=== PATIENT | male | born 1960 | race Hispanic/Latino ===

== ENCOUNTER → 2025-01-16 | Outpatient (CLI) | payer BC ==
[~2025-01-16] VITALS: Ht 167.6 cm; Wt 91.4 kg
[2025-01-16 10:05] VITALS: BP 155/82; PULSE 61; RESP 18; TEMP 98.6
--- NOTE | 2025-01-16 11:10 | NUR ---
notified called dr valencia and informed pt took clopidogrel this morning. procedure for monday cancelled as per md and they will call and reschedule
== END | disposition home or self-care (01) ==
LOC: DAH 08:43 → EDSTATUS 10:00
PROVIDERS: ATTEND Student in an Organized Health Care Education/Training Program
DX: Z01.818 Encounter for other preprocedural examination (principal); M87.051 Idiopathic aseptic necrosis of right femur; M25.551 Pain in right hip; M21.70 Unequal limb length (acquired), unspecified site; R26.89 Other abnormalities of gait and mobility; I11.9 Hypertensive heart disease without heart failure; E78.5 Hyperlipidemia, unspecified; Z79.82 Long term (current) use of aspirin; Z95.5 Presence of coronary angioplasty implant and graft; Z79.899 Other long term (current) drug therapy
CPT/HCPCS: 36415; 84134; 86140; 87641

== ENCOUNTER 2025-02-05 05:55 | Observation (INO) | payer BC ==
[2025-02-03 09:50] LABS: IMMATURE GRANULOCYTE ABSOLUTE 0.02 K/uL (0-1); NUCLEATED RED BLOOD CELLS 0.0 % (0.0-0.19); PLATELET COUNT (AUTO) 196 K/uL (130-400); RED BLOOD CELL COUNT(AUTO) 4.29 MIL/uL (4.50-6.20); RED CELL DISTRIBUTION WIDTH 11.9 % (11.0-15.5); WHITE BLOOD COUNT (AUTO) 6.2 K/uL (4.8-10.8)
[2025-02-03 10:04] LABS: INR 0.97 (0.85-1.15)
[2025-02-03 10:07] LABS: CREATININE 0.8 mg/dL (0.5-1.3); GLOMERULAR FILTR. RATE CALC 99.0 mL/min (>90); GLUCOSE,RANDOM 109.0 mg/dL (70-105); SODIUM SERUM 145.0 mmol/L (136-145); UREA NITROGEN, BLOOD 14.0 mg/dL (7-18)
[2025-02-03 10:29] VITALS: BP 174/81; PULSE 68; RESP 18; TEMP 98.2
[2025-02-03 10:33] VITALS: BP 150/89
[2025-02-05] VITALS (22 sets, daily range): BP systolic 123–147; BP diastolic 64–80; PULSE 66–97; RESP 16–20; TEMP 96.2–98.1; O2SAT 97
[~2025-02-05] VITALS: Ht 170.2 cm; Wt 92.1 kg
[~2025-02-05 05:55] MED LIST: ASPI-1197 PO; ATOR40TA71 PO; CARV3.12 PO; CHOL100046 PO; CLOP75TA32 PO; CYAN500T9 PO; NITR0.4T50 SL
[2025-02-05] MEDS ORDERED: CALCIUM CARB 500MG PO PRN (08:00)
[2025-02-05] MEDS ORDERED: FERROUS FUMARATE 324 MG TABLET PO PRN (08:00)
[2025-02-05] MEDS ORDERED: HYDROcodone/APAP 5/325 1 TAB TABLET PO PRN (08:00)
[2025-02-05] MEDS ORDERED: PoTASSium chloRIDE 20MEQ ER 20 MEQ ERTAB PO PRN (08:00)
[2025-02-05] MEDS ORDERED: PoTASSium chl 10% ELIXIR 20MEQ 20 MEQ/15 ML UDCUP PO PRN (08:00)
[2025-02-05] MEDS ORDERED: CYCLOBENZAPRINE HCL 10 MG TABLET PO PRN (08:00)
[2025-02-05] MEDS ORDERED: NITROGLYCERIN 0.4 MG SL TAB SL PRN (08:00)
[2025-02-05] MEDS ORDERED: LIDOCAINE PF 100MG/5ML (2%) SYRINGE 5ML ONE (08:18)
[2025-02-05] MEDS ORDERED: SUCCINYLCHOLINE CHLORIDE 20 MG/ML 10 ML VIAL ONE (08:18)
[2025-02-05] MEDS ORDERED: GLYCOPYRROLATE 0.2 MG/ML 5 ML VIAL ONE (08:18)
[2025-02-05] MEDS ORDERED: NEOSTIGMINE METHYLSULFATE 1MG/ML IV ONE (08:18)
[2025-02-05] MEDS ORDERED: MIDAZOLAM HCL 1 MG/ML 2ML VIAL ONE (08:19)
[2025-02-05] MEDS ORDERED: TRANEXAMIC ACID 1000MG/10ML ONE (08:20)
[2025-02-05] MEDS ORDERED: ALBUMIN (HUMAN) 5% 500 ML IV ONE (08:26)
[2025-02-05] MEDS: LACTATED RINGERS 1000ML 1,000 ML IV ONE (09:25)
[2025-02-05] MEDS: TRANEXAMIC ACID 1000MG/10ML IV ONE (09:35)
--- NOTE | 2025-02-05 13:00 | NUR ---
PT ARRIVED TO UNIT. VS: 147/82, SPO2 95% ON RA, AND PULSE 75. PT IS RESTING COMFORTABLY ON THE BED. NO S/S OF DISTRESS NO COMPLAINTS OF PAIN VERBALIZED.
[2025-02-05] MEDS: 0.9%NACL 1000ML 1,000 ML IV SCH (13:56)
--- NOTE | 2025-02-05 14:00 | NUR ---
Ortho Coordinator: Patient working with physical therapy.
[2025-02-05] MEDS: HYDROcodone/APAP 5/325 1 TAB TABLET PO PRN (14:14)
--- NOTE | 2025-02-05 14:44 | DS ---
Discharge Summary Hospital Course Summary: The patient was admitted to the hospital postoperatively on 02/05/2025 after undergoing right total hip arthroplasty. They did well with routine postoperative pain control. They worked well with physical therapy. They developed some acute blood loss anemia but remained asymptomatic. The hospital course was otherwise uncomplicated. They were subsequently able to be discharged on postoperative day 1 once discharge arrangements were made with home health physical therapy with [facility]. Litigation Services Manager(s): None Procedure(s): Right total hip arthroplasty, 02/05/2025 Assessment/Plan: ASSESSMENT: Status post right total hip arthroplasty Acute blood loss anemia PLAN: See discharge instructions Discharge Instructions: Begin working with home health physical therapy. Remembered do not flex the hip more than 90 and do not cross midline at the knees or ankles for the 1st six weeks. If you are side sleeper place a pillow between the knees and ankles to prevent the legs from crossing. Dressing may be removed 02/07/2025 and left open to air. Showers ok allowing s oap and water to run over the wound. Pat dry. Do not submerge wound in tub/pool. Do not apply ointments. Do not apply Betadine. Do not apply peroxide. Ice packs to decrease pain/swelling. Prescriptions have been sent to the pharmacy: *[place] 5/325mg 1-2 tab every 6 hours as needed for severe pain. (please call for refills) Cyclobenzaprine 5mg 1 tab every 8 hours as needed for muscle spasm pain. Gabapentin 100mg 1 tab every 8 hours (may discontinue if drowsy). Colace 100mg 1 tab orally twice a day as needed for constipation. Resume your home plavix and aspirin to prevent blood clots on 02/07/25. Followup visit scheduled for 02/27/2025 at 3pm with [facility]. Home Medications: Active Scripts Hydrocodone/Acetaminophen (Hydrocodon-Acetaminophen 5-325) 5 Mg-325 Mg Tablet, 1-2 TAB PO Q6HPRN PRN for SEVERE PAIN (7-10), #56 TAB 0 Refills Prov:JIM CASTELLANOS MD 02/06/25 Reported Medications Nitroglycerin (Nitroglycerin) 0.4 Mg Tab.subl, 0.4 MG SL AD, TAB.SL 02/03/25 Atorvastatin Calcium (Atorvastatin Calcium) 40 Mg Tablet, 40 MG PO AM, TAB 02/03/25 Aspirin (Aspirin) 81 Mg Tab.chew, 81 MG PO AM, TAB.CHEW 02/03/25 Carvedilol (Carvedilol) 3.125 Mg Tablet, 3.125 MG PO AM, TAB 02/03/25 Clopidogrel Bisulfate (Clopidogrel) 75 Mg Tablet, 75 MG PO AM, TAB 02/03/25 Cholecalciferol (Vitamin D3) (Vitamin D3) 25 Mcg (1000 Unit) Capsule, 25 MCG PO PM, CAP 02/03/25 Cyanocobalamin (Vitamin B-12) 500 Mcg Tab, 500 MCG PO PM, TAB 02/03/25 JIM CASTELLANOS MD Feb 05, 2025 14:44
--- NOTE | 2025-02-05 14:50 | OP ---
Operative Note: DATE OF PROCEDURE: 02/05/25 SURGEON: JIM CASTELLANOS MD CAGE UNLOADER: Xi Subramanian ANESTHESIA: General and fascia iliaca block ANESTHESIOLOGIST/HEAD BONE GRINDER: Landen Whitaker PREOPERATIVE DIAGNOSIS: Right hip avascular necrosis POSTOPERATIVE DIAGNOSIS: Right hip avascular necrosis PROCEDURE: Right total hip arthroplasty ESTIMATED BLOOD LOSS: 200 cc INDICATIONS: 64-year-old male with right hip osteoarthritis, secondary to avascular necrosis, failing conservative management. After discussion of the risks, benefits, and alternatives, the patient voluntarily agreed to undergo the aforementioned procedure. IMPLANTS: Lora [employer] Nephew 56 mm R3 acetabular component with 6.5 mm screws x2, OR3O 44 mm Oxinium dual mobility liner, 28/44 mm dual mobility insert polyethylene, size 6 high offset anthology stem with a 28 mm Oxinium +0 head DESCRIPTION OF PROCEDURE: Patient was properly identified in the preoperative holding area. Surgical site marking was verified and surgery consent reviewed. The patient was then taken to the operating room and placed in supine position on the OR table. After induction of general anesthesia, preoperative antibiotics were given. The patient was then transitioned in the lateral decubitus position with the right side up. All bony prominences were well-padded. Right lower extremity was then prepped and draped in the usual sterile fashion. Surgical time out was done verifying correct surgery, side, site, and location to be performed. We then began the procedure by making approximately 15 cm long incision centered over the greater trochanter. Here we came sharply through skin down to the fascia. Hemostasis was then achieved using Bovie electrocautery. We then incised fascia in line with the skin incision and finger split the tensor muscle proximally. We then placed our Charnley retractor. At this point we identified the vastus ridge and began elevating the full-thickness soft tissue flap off of the vastus ridge, splitting the vastus lateralis and gluteus muscles as necessary. We then proceeded to externally rotate the femur while making this flap. We resected part of the anterior capsule. The femoral head and neck was then delivered into view. We then dislocated the hip and performed a femoral neck osteotomy approximately half fingerbreadth proximal lesser trochanter. We then placed our retractors around the superior and anterior portion of the acetabulum and began to remove the labrum circumferentially. We then began reaming the acetabulum where we reamed up to a size 55 ensuring appropriate anteversion and abduction. We then proceeded to trial with the size 56 acetabular component and this appeared to sit well. We opened our size 56 acetabular component and after irrigating out the wound malleted this into place. It appeared to have good press-fit however we elected to place two of the 6.5 mm screws as well. We drilled and filled the screws in standard fashion in the posterior superior portion of the cup. The wound was thoroughly irrigated out further and we placed the acetabular dual mobility liner and impacted this in place in standard fashion. We then proceeded to reposition our retractors to elevate the proximal femur out of the wound. We then used the box chisel and canal finder to began preparing the femoral side and sequentially broached up to the aforementioned size stem. Once we felt we had good fit, fill, and control of the femur with the stem in place we then used our trial head component and reduce the hip. However we noticed this to be lax on the soft tissue tensioning with slight shortening of the limb and then dislocated the hip and trialed once more with the high offset neck. Upon reduction, we had appropriate soft tissue tensioning, limb length and stable range of motion. We therefore dislocated the hip once more removed our trial components thoroughly irrigated the out the wound and placed our final components in standard fashion. The hip was then reduced with the final components in place. It was found to be stable through range of motion with appropriate soft tissue tensioning and appropriate limb length. At this point we placed a bump under the knee and the foot on the male with a stack of towels to allow for internal rotation. We repaired the abductors back to the greater trochanter using #5 Ethibond. We then repaired the rent in the vastus lateralis and gluteus muscles using #1 Vicryl in a running fashion. We removed our Charnley retractor and began to repair the IT band using #1 Vicryl in interrupted [id number] fashion. At this point we began to close her subcutaneous tissue using 2-0 Vicryl. Running 3-0 Monocryl in subcuticular fashion with Dermabond placed over this for the skin. Island barrier dressing was then applied. Patient was returned to supine position, awakened from anesthesia, and taken to the recovery room in stable condition. JIM CASTELLANOS MD Feb 05, 2025 14:50
--- NOTE | 2025-02-05 17:12 | NUR ---
D/C PLAN CM spoke to patient and spouse regarding d/c planning at bedside. Patient lives with spouse. Spouse to assist at discharge. Reports he is independent with ADLs and denies having any home services. Patient reports he discussed returning home with home health with Dr. Russo. Patient states he has a standard walker without wheels. CM offered in network home health and DME agencies. CM obtained HA[facility]E for any in [facility] health and DME agencies. CM to fax referral to [facility] home health and [facility] for 09/28 [facility]. CM advised patient that their may be potential copay costs for PT visits and DME. Verbalized understanding. No other needs verbalized. CM to f/u with acceptance. Addendum: 02/05/25 at 1718 by JULY LYNCH CM Amended: Links added.
--- NOTE | 2025-02-05 19:41 | HMCIMG ---
EXAM: CR left Hip, 4 View. CLINICAL HISTORY: S/P HIP SURGERY; COMPARING RT vs LT COMPARISON: None provided. FINDINGS: Left total hip arthroplasty is near anatomic alignment with no periprosthetic fracture appreciated. Mild bilateral sacroiliac and left hip joint osteoarthritis. Mild spondylosis of the visualized lower lumbar spine. IMPRESSION: 1. No acute findings. 2. Status post left total hip arthroplasty in near anatomic alignment. /[place]
--- NOTE | 2025-02-05 20:00 | NUR ---
EDUCATION: PT LYING SEMI-BRIONES'S POSITION, AT BEDSIDE. RIGHT HIP ARTHROPLASTY DONE TODAY, DRESSING DRY/INTACT, SENSATION INTACT, STRONG PULSE. VOICES NO PAIN/DISCOMFORTS AT THE TIME. PT DID 2000 RETURN DEMONSTRATION ON IS. PT/ INSTRUCTED ON POST OP CARE, GABAPENTIN, ANCEF USAGE, SIDE EFFECTS. BILATERAL SCDs TO LOWER EXTREMITIES IN PLACE. ENCOURAGED TO USE CALL LIGHT FOR ASSISTANCE, CALL MIMS WITHIN REACH, S/R UP X 3, BED ALARM IN PLACE.
[2025-02-05] MEDS: CYANOCOBALAMIN (VITAMIN B-12) 1,000 MCG TABLET PO SCH (20:38)
[2025-02-05] MEDS: (Cholecalciferol (Vitamin D3) 25 MCG) PO SCH (21:00)
[2025-02-06] VITALS (7 sets, daily range): BP systolic 128–146; BP diastolic 68–76; PULSE 82–95; RESP 18–20; TEMP 98–100.4; O2SAT 98
[2025-02-06 04:47] LABS: NUCLEATED RED BLOOD CELLS 0.0 % (0.0-0.19); PLATELET COUNT (AUTO) 175.0 K/uL (130-400); RED BLOOD CELL COUNT(AUTO) 3.41 MIL/uL (4.50-6.20); RED CELL DISTRIBUTION WIDTH 11.9 % (11.0-15.5); WHITE BLOOD COUNT (AUTO) 13.0 K/uL (4.8-10.8)
[2025-02-06 04:55] LABS: CREATININE 0.7 mg/dL (0.5-1.3); GLOMERULAR FILTR. RATE CALC 104.0 mL/min (>90); GLUCOSE,RANDOM 174.0 mg/dL (70-105); SODIUM SERUM 141.0 mmol/L (136-145); UREA NITROGEN, BLOOD 12.0 mg/dL (7-18)
[2025-02-06] MEDS: HYDROcodone/APAP 5/325 1 TAB TABLET PO PRN (05:48)
--- NOTE | 2025-02-06 08:10 | PN ---
Ortho postop day one. This morning the patient is awake alert and oriented. She is seated outside of bed in a chair resting comfortably alternating his foot on extension and flexion on a footstool. The dressing is intact to the anterior joint. Ice is currently present to the op-site. The gastrocnemius a soft and nontender. Negative Homans. Reporting adequate pain control. Vital signs have remained stable. Afebrile. Voiding on his own without difficulty. Yet to pass gas but is belching. Laboratory results reviewed. Noted to have a drop in hemoglobin and hematocrit as expected after JIGNESH. Patient currently is asymptomatic. We will continue to observe and address per protocol as necessary. Reinforced incentive spirometry. SCD sleeves currently not on but are present. Ambulated within the confines of his room yesterday with physical therapy and is pending further physical therapy this morning. The anticipated discharge goal for this patient is home health/PT. Assessment: Status post right total hip arthroplasty. Asymptomatic acute postoperative blood loss anemia. Plan: Continue with Dr. Russo's JIGNESH protocol and discharge planning. Asymptomatic acute postoperative blood loss anemia addressed per protocol as necessary Vitals/Labs Vital Signs Date Time Temp Pulse Resp B/P (MAP) Pulse Ox O2 Delivery O2 Flow Rate FiO2 02/06/25 04:00 99.0 95 20 130/68 97 Room Air 02/05/25 20:00 0 21 Laboratory Tests 02/06/25 04:31 Medications Current Medications Cefazolin Sodium 2 gm STK-MED ONCE .ROUTE; Start 02/05/25 at 06:46; Stop 02/05/25 at 06:47; Status DC Lactated Ringer's 1,000 ml @ As Directed STK-MED ONCE IV Last administered on 02/05/25at 09:25; Start 02/05/25 at 06:46; Stop 02/05/25 at 06:47; Status DC Sodium Chloride 1,000 ml @ 100 mls/hr Q10H IV Last administered on 02/05/25at 18:04; Start 02/05/25 at 08:00; Stop 02/06/25 at 07:59; Status DC Polyethylene Glycol 17 gm DAILY PO; Start 02/05/25 at 09:00; Stop 03/07/25 at 08:59 Bisacodyl 10 mg DAILY PRN RC; Start 02/08/25 at 08:00; Stop 03/10/25 at 07:59 Ketorolac Tromethamine 15 mg Q6H PRN IV; Start 02/06/25 at 08:00; Stop 02/11/25 at 07:59 Ferrous Fumarate 324 mg DAILY PRN PO; Start 02/05/25 at 08:00; Stop 03/07/25 at 07:59 Calcium Carbonate 500 mg Q12H PRN PO; Start 02/05/25 at 08:00; Stop 03/07/25 at 07:59 Ondansetron HCl 4 mg Q6H PRN IVP; Start 02/05/25 at 08:00; Stop 03/07/25 at 07:59 Cefazolin Sodium 2 gm Q8H IVPB Last administered on 02/05/25at 20:38; Start 02/05/25 at 13:00; Stop 02/05/25 at 21:01; Status DC Gabapentin 100 mg TID PO Last administered on 02/05/25at 20:37; Start 02/05/25 at 09:00; Stop 03/07/25 at 08:59 Cyclobenzaprine HCl 5 mg Q8H PRN PO; Start 02/05/25 at 08:00; Stop 03/07/25 at 07:59 Docusate Sodium 100 mg BID PO Last administered on 02/05/25at 20:37; Start 02/05/25 at 09:00; Stop 03/07/25 at 08:59 Ketorolac Tromethamine 15 mg Q8H IV Last administered on 02/05/25at 23:55; Start 02/05/25 at 08:00; Stop 02/06/25 at 00:01; Status DC Aspirin 325 mg DAILY PO; Start 02/06/25 at 09:00; Stop 03/08/25 at 08:59 Potassium Chloride 100 ml @ 100 mls/hr AD PRN IV; Start 02/05/25 at 08:00; Stop 03/07/25 at 07:59 Potassium Chloride 20 meq AD PRN PO; Start 02/05/25 at 08:00; Stop 03/07/25 at 07:59 Potassium Chloride 20 meq AD PRN PO; Start 02/05/25 at 08:00; Stop 03/07/25 at 07:59 Tramadol HCl 50 mg Q6H PRN PO; Start 02/05/25 at 08:00; Stop 02/10/25 at 07:59 Acetaminophen/ Hydrocodone Bitart Q4H PRN PO; Start 02/05/25 at 08:00; Stop 02/05/25 at 08:17; Status DC Atorvastatin Calcium 40 mg AM PO; Start 02/05/25 at 09:00; Stop 03/07/25 at 08:59 Carvedilol 3.125 mg AM PO; Start 02/05/25 at 09:00; Stop 03/07/25 at 08:59 Nitroglycerin 0.4 mg AD PRN SL; Start 02/05/25 at 08:00; Stop 03/07/25 at 07:59 Home Med (Cholecalciferol (Vitamin D3) 25 MCG) PM PO; Start 02/05/25 at 21:00; Stop 03/07/25 at 20:59 Vitamin B Complex 500 mcg PM PO Last administered on 02/05/25at 20:38; Start 02/05/25 at 21:00; Stop 03/07/25 at 20:59 Acetaminophen/ Hydrocodone Bitart 1 tab Q4H PRN PO Last administered on 02/05/25at 14:14; Start 02/05/25 at 08:30; Stop 02/10/25 at 08:29 Acetaminophen/ Hydrocodone Bitart 2 tab Q4H PRN PO Last administered on 02/06/25at 05:48; Start 02/05/25 at 08:30; Stop 02/10/25 at 08:29 Lidocaine HCl 100 mg STK-MED ONCE .ROUTE; Start 02/05/25 at 08:18; Stop 02/05/25 at 08:18; Status DC Ondansetron HCl 4 mg STK-MED ONCE .ROUTE; Start 02/05/25 at 08:18; Stop 02/05/25 at 08:18; Status DC Succinylcholine Chloride 200 mg STK-MED ONCE .ROUTE; Start 02/05/25 at 08:18; Stop 02/05/25 at 08:18; Status DC Propofol 200 mg STK-MED ONCE IV; Start 02/05/25 at 08:18; Stop 02/05/25 at 08:18; Status DC Dexamethasone Sodium Phosphate 10 mg STK-MED ONCE .ROUTE; Start 02/05/25 at 08:18; Stop 02/05/25 at 08:18; Status DC Glycopyrrolate 1 mg STK-MED ONCE .ROUTE; Start 02/05/25 at 08:18; Stop 02/05/25 at 08:18; Status DC Neostigmine Methylsulfate 10 mg STK-MED ONCE IV; Start 02/05/25 at 08:18; Stop 02/05/25 at 08:19; Status DC Rocuronium [place] 50 mg STK-MED ONCE .ROUTE; Start 02/05/25 at 08:18; Stop 02/05/25 at 08:19; Status DC Fentanyl Citrate 100 mcg STK-MED ONCE .ROUTE; Start 02/05/25 at 08:18; Stop 02/05/25 at 08:19; Status DC Midazolam HCl 2 mg STK-MED ONCE .ROUTE; Start 02/05/25 at 08:19; Stop 02/05/25 at 08:20; Status DC Tranexamic Acid 1,000 mg STK-MED ONCE .ROUTE; Start 02/05/25 at 08:20; Stop 02/05/25 at 08:20; Status DC Ketamine HCl 50 mg STK-MED ONCE .ROUTE; Start 02/05/25 at 08:26; Stop 02/05/25 at 08:26; Status DC Albumin Human 500 ml @ As Directed STK-MED ONCE IV; Start 02/05/25 at 08:26; Stop 02/05/25 at 08:27; Status DC Ephedrine Sulfate 50 mg STK-MED ONCE .ROUTE; Start 02/05/25 at 08:27; Stop 02/05/25 at 08:27; Status DC Rocuronium [place] 50 mg STK-MED ONCE .ROUTE; Start 02/05/25 at 09:33; Stop 02/05/25 at 09:33; Status DC Fentanyl Citrate 250 mcg STK-MED ONCE IV; Start 02/05/25 at 09:37; Stop 02/05/25 at 09:38; Status DC Phenylephrine HCl 10 mg STK-MED ONCE IV; Start 02/05/25 at 09:55; Stop 02/05/25 at 09:55; Status DC Cefazolin Sodium 2 gm STK-MED ONCE IVPB Last administered on 02/05/25at 09:20; Start 02/05/25 at 09:20; Stop 02/05/25 at 10:03; Status DC Tranexamic Acid 1,000 mg STK-MED ONCE IV Last administered on 02/05/25at 09:35; Start 02/05/25 at 09:35; Stop 02/05/25 at 11:04; Status DC SARI BERMUDEZ NP Feb 06, 2025 08:10
[2025-02-06] MEDS: ASPIRIN 325MG EC TAB PO SCH (10:17)
[2025-02-06] MEDS ORDERED: CYCL-309 PO (12:50)
[2025-02-06] MEDS ORDERED: GABA100C PO (12:50)
[2025-02-06] MEDS ORDERED: HYDR-4060 PO (12:50)
[2025-02-06] MEDS ORDERED: DOCU-116 PO (12:50)
--- NOTE | 2025-02-06 14:00 | NUR ---
Ortho Coordinator: Teaching regarding DVT and pneumonia prevention, pain expectations and pain management. Patient up to chair, at bedside. B SCD sleeves in room, machine in room. Incentive spirometer at bedside. Patient return demonstrated use of incentive spirometer and verbalized frequency of use. Patient return demonstrated foot flexion/extension exercises. Rationale for both reviewed. Patient intends to discharge home with home health physical therapy. Expectations for first visit reviewed. Patient provided prune juice x 2, as he has had no bowel movement. Encouraged patient to continue premedicating prior to physical therapy and periods of high activity once discharged, to continue with incentive spirometer, fluids and foot flexion and extension exercises. Patient and verbalized understanding. No additional concerns or questions at this time.
[2025-02-06] MEDS: LACTULOSE 20 GM/30 ML UDCUP PO ONE (16:37)
--- NOTE | 2025-02-06 19:00 | NUR ---
PATIENT REPORT REPORT CALLED TO [facility] SPOKE WITH AIRAM ESPINOZA. DRESSING INSTRUCTIONS GIVEN. REVIEWED MEDICATIONS. ALL QUESTIONS ANSWERED.
--- NOTE | 2025-02-06 20:00 | NUR ---
PATIENT DISCHARGED PERIPHERAL IV DISCONTINUED. DRESSING CLEAN AND DRY AND INTACT. PAIN LEVEL 10. PRESCRIPTIONS FAXED TO PHARMACY. PATIENT AWARE TO F/U WITH DR. CASTELLANOS. PHONE NUMBER PROVIDED. ALL QUESTIONS ANSWERED. ALL BELONGINGS SENT WITH PATIENT. PATIENT TAKEN DOWN BY WHEELCHAIR.
== END 2025-02-06 20:00 | disposition home health service (06) ==
LOC: DAH 05:55 → DAHIP 05:56 → DAH 05:56 → 4AH 13:00
PROVIDERS: ADMIT Student in an Organized Health Care Education/Training Program; ATTEND Student in an Organized Health Care Education/Training Program
DX: M16.11 Unilateral primary osteoarthritis, right hip (principal); M87.051 Idiopathic aseptic necrosis of right femur; D62 Acute posthemorrhagic anemia; I11.9 Hypertensive heart disease without heart failure; I25.10 Atherosclerotic heart disease of native coronary artery without angina pectoris; I25.2 Old myocardial infarction; E66.9 Obesity, unspecified; E78.5 Hyperlipidemia, unspecified; R26.89 Other abnormalities of gait and mobility; Z68.31 Body mass index [BMI] 31.0-31.9, adult; Z79.899 Other long term (current) drug therapy
CPT/HCPCS: 82040; 80048 ×2; 85025; 85610; 85730; 84134; 86140; 36415 ×2; 87641; 27130; 96376; 96365; 96366; 96375; 82948; 73503; 73521; 97161; 97116 ×3; 97530 ×5; 85027; G0378 ×36; A4663; J7120 ×2; P9045; J3010 ×2; J3490 ×6; J1100; J0330; J2003; J2250; J2704; J2405; J2710; J1885 ×2; J2371; J0690 ×4; A4649 ×2; A4930; A6255; A5120; A4215; A4223 ×2; A4213; A4222; A4221; A4216; C1776